=== PATIENT | female | born 1960 | race Caucasian/White ===

== ENCOUNTER → 2017-06-22 | Day surgery (SDC) | payer MEDICARE, OTHER ==
[~2017-06-22] VITALS: Ht 165.1 cm; Wt 77.6 kg
[~2017-06-22] MED LIST: ABILIFY10 MG PO; ACID CONTROL150 MG PO; CYMBALTA60 MG PO; FENOFIBRATE54 MG PO; FLECTOR TOPICAL1 EA TD; HYDROCODON-ACE1 EAC2 PO; JANUVIA100 MG PO; KEFLEX500 MG PO; LIORESAL TAB 1010 MG PO; NEURONTIN 100100 MG PO; PERCOCET 10-321 EACH PO; PRINIVIL20 MG PO; PROVENTIL HFA 61 INH INH; SINGULAIR10 MG PO; WELLBUTRIN SR100 MG PO
== END | disposition home or self-care (01) ==
LOC: OR 10:17
PROVIDERS: Orthopaedic Surgery
PROC: 0RPM04Z Removal of Internal Fixation Device from Left Elbow Joint, Open Approach (ICD-10-PCS; principal; 2017-06-22 13:15)
DX: T84.84XA Pain due to internal orthopedic prosthetic devices, implants and grafts, initial encounter (principal); T84.69XA Infection and inflammatory reaction due to internal fixation device of other site, initial encounter; I10 Essential (primary) hypertension; E78.5 Hyperlipidemia, unspecified; E11.9 Type 2 diabetes mellitus without complications; M19.90 Unspecified osteoarthritis, unspecified site; K21.9 Gastro-esophageal reflux disease without esophagitis; J45.909 Unspecified asthma, uncomplicated; F17.210 Nicotine dependence, cigarettes, uncomplicated; Z79.899 Other long term (current) drug therapy; Z88.8 Allergy status to other drugs, medicaments and biological substances; Y83.1 Surgical operation with implant of artificial internal device as the cause of abnormal reaction of the patient, or of later complication, without mention of misadventure at the time of the procedure
CPT/HCPCS: 82962; 87070; 87205; J1100; J2405; J2710; J3010; J3370; J7030; J7050; J7120